=== PATIENT | female | born 1955 | race Caucasian/White ===

== ENCOUNTER 2017-05-08 09:31 | Emergency (ER) | payer OTHER ==
[~2017-05-08] VITALS: Ht 170.2 cm; Wt 100.0 kg
[~2017-05-08 09:31] MED LIST: HYDR25TA4 PO; LORA0.5T PO
[2017-05-08 09:37] VITALS: BP 139/84; PULSE 86; RESP 18; O2SAT 97
--- NOTE | 2017-05-08 10:52 | ED.REPORT ---
HPI-Trauma Minor / Fall Date of Service May 08, 2017 ED Provider: Prashanth Olivo MD Patient is a 61 year old female with history of pre-diabetes, peripheral vascular disease and hypertension who presents to the ED complaining of left hip pain onset 3 days ago after a 3ft fall. Associated symptoms include pain with ambulation and episodes of nausea. She denies losing consciousness, neck pain or vomiting. The patient states that she has had increasing pain after the fall and noticed increased pain after standing for prolonged periods. Nursing Notes Stated Complaint: GLF 05/05/17,LT HIP PAIN Chief Complaint: Extremity Trauma Nursing Notes Reviewed: Yes Allergies: Coded Allergies: mirtazapine (Verified Allergy, Intermediate, 09/27/16) aspirin (Verified Allergy, Mild, 09/27/16) escitalopram (Verified Allergy, Mild, 09/27/16) eszopiclone (Verified Allergy, Mild, 09/27/16) paroxetine (Verified Allergy, Mild, 09/27/16) temazepam (Verified Allergy, Mild, 09/27/16) trazodone (Verified Allergy, Mild, 09/27/16) venlafaxine (Verified Allergy, Mild, 09/27/16) citalopram (Verified Allergy, Unknown, 09/27/16) Scheduled Hydrochlorothiazide (Hydrochlorothiazide) 25 Mg Tablet 25 MG PO DAILY Scheduled PRN Lorazepam (Lorazepam) 0.5 Mg Tablet 0.5 MG PO HS PRN PRN For Insomnia General Time Seen by MD: 09:55 Chief Complaint Fall Hx Obtained From: Patient Arrived By: Walk-in Onset Occurred: 3 days ago Symptom Duration: Since onset Caused by: Fall from height... (< 3 feet) Location: Hip left Quality: Painful Severity: Current: Moderate Recent Healthcare: Recent doctor visit Similar Sx Previous: No Past Medical History Past Medical History pre diabetes peripheral vascular disease Reports: Hypertension Smoking History Unknown if Ever Smoker Social History Other Social History: Good social support Ambulatory Status Independent Review of Systems Constitutional: Denies: Chills, Fever Respiratory: Denies: Non-productive cough, Shortness of breath Musculoskeletal: Reports: Extremity pain (left hip), Denies: Neck pain Skin: Denies Itching, Denies Rash Neurologic: Reports: Problem walking (due to pain), Denies: Change LOC, Numbness, Weakness Complete sys rev & neg: except as marked. GI: Reports: Nausea, Denies: Vomiting Physical Exam Initial Vital Signs Vital Signs (First) Date Time Temp Pulse Resp B/P Pulse Ox O2 Delivery O2 Flow Rate FiO2 05/08/17 09:37 36.6 86 18 139/84 97 Room Air Initial VS: Reviewed General/Constitutional: Awake, Alert Neck: Atraumatic, Supple Head / Eyes: Atraumatic, Normocephalic, PERRL, EOMI Respiratory / Chest: Atraumatic, No respiratory distress Upper Extremity / MS: Atraumatic, Inspection NL, Full range of motion, No deformity, Neurologic intact, Vascular intact Lower Extremity / Pelvis / MS: No erythema, No deformity, Neurologic intact, Vascular intact Lower Ext Brief Normals: Hip R exam normal, Thigh L exam normal, Knee L exam normal, Leg / calf L exam normal Left Hip: Positive: Tenderness present... (Mild), Negative: Erythema present, Leg shortened, ROM reduced..., Swelling present..., Unable to bear weight, Warmth present Skin: Atraumatic, Color NL, No rash, Warm, Dry Neurologic: Oriented X3, Speech NL, No motor deficits, No sensory deficits, CN II - XII intact Psychiatric: Affect NL, Mood NL Interpretation & Diagnostics X-Ray Interpretation Xray Interpretation: IMPRESSION: 1. No acute fracture of the left hip. 2. Mild to moderate degenerative changes left hip. Dictated by: Jarocho Orozco M.D. on 05/08/2017 at 10:00 Approved by: Jarocho Orozco M.D. on 05/08/2017 at 10:02 X-Ray Ordered: Hip left Interpretation / Wet Read by: Interpret - Radiologist Interpretation: Normal exam, No fracture/dislocation Re-Eval/Medical Decision Re-Evaluation/Progress : Time of Eval: 11:38 Re-Evaluation/Progress Note: Discussed X-ray results and plan for discharge. Patient understands and agrees to the plan. All questions were addressed. Counseled Regarding: Diagnosis, Lab results, Need for follow-up, When/why to return to ED Discharge & Departure Impression: Primary Impression: Fall Encounter type: initial encounter Qualified Code: W19.XXXA - Unspecified fall, initial encounter Additional Impression: Hip pain Laterality: left Qualified Code: M25.552 - Pain in left hip Disposition: Home Discharge Condition All VS Reviewed: Yes Condition: Stable Patient Instructions: Hip Pain (ED) Additional Instructions: Your X-ray was normal and reassuring. There was no evidence of fracture. You can take Tylenol as needed for pain. You should expect to feel better in the next couple of days. Walk as tolerated by your pain. Call your primary care physician to schedule an appointment for early next week if not improved. Return to the emergency department if you develop any new or concerning symptoms. Referrals: Shaista Ovalle MD (PCP) Arinaibe Attestation Portions of this note were transcribed by Ny Durham. I, Dr. Olivo personally performed the history, physical exam and medical decision-making; I reviewed and confirmed the accuracy of the information in the transcribed note. Signed by: Bjorn Durham, 05/08/17 and 1145 copies to: Shaista Ovalle MD, Kirk H MD May 08, 2017 10:52 Stacy Durham May 08, 2017 11:10
--- NOTE | 2017-05-08 11:03 | DRSVH ---
PROCEDURE: X-RAY LEFT HIP COMPLETE, MINIMUM TWO VIEWS ([id number]) INDICATIONS: fell/pain with ambulation TECHNIQUE: 2 views of the hip were acquired. COMPARISON: [facility], CR, XR PELVIS W LATERAL HIP RT, 07/2016, 14:48. FINDINGS: Bones: No fractures or dislocations. No suspicious bony lesions. The visualized pelvic ring appear s intact. Mild to moderate degenerative changes of the left hip are similar to the previous exam. T he bone mineralization is within normal limits. Soft tissues: No suspicious soft tissue calcifications or masses. IMPRESSION: 1. No acute fracture of the left hip. 2. Mild to moderate degenerative changes left hip. Dictated by: Jarocho Orozco M.D. on 05/08/2017 at 10:00 Approved by: Jarocho Orozco M.D. on 05/08/2017 at 10:02
[2017-05-08 11:51] VITALS: BP 136/78; PULSE 72; RESP 16; O2SAT 98
== END 2017-05-08 11:54 | disposition home or self-care (01) ==
LOC: SED 09:31
DX: M25.552 Pain in left hip (principal); W17.89XA Other fall from one level to another, initial encounter; Y93.H2 Activity, gardening and landscaping; Y92.017 Garden or yard in single-family (private) house as the place of occurrence of the external cause; Y99.8 Other external cause status; I10 Essential (primary) hypertension; R73.03 Prediabetes; Z88.1 Allergy status to other antibiotic agents; Z88.5 Allergy status to narcotic agent; Z88.8 Allergy status to other drugs, medicaments and biological substances